=== PATIENT | female | born 1975 | race Two or more races ===

== ENCOUNTER 2019-09-26 12:37 | Outpatient (CLI) | payer OTHER ==
[~2019-09-26 12:37] MED LIST: CIPRO500 MG; URETRON D/S TAB1 TAB
== END 2019-09-26 12:41 | disposition home or self-care (01) ==
LOC: RAD 12:37
PROVIDERS: ATTEND Orthopaedic Surgery
DX: M25.562 Pain in left knee (principal); M25.512 Pain in left shoulder

== ENCOUNTER 2019-10-23 09:01 | Outpatient (CLI) | payer OTHER | END 2019-10-23 09:03 | disposition home or self-care (01) | LOC: SONOGRAMA 09:01 | PROVIDERS: ATTEND Orthopaedic Surgery | DX: M25.512 Pain in left shoulder (principal) ==

== ENCOUNTER → 2019-11-27 | Outpatient (CLI) | payer OTHER | END | disposition home or self-care (01) | LOC: MAMO-SONO 08:45 | PROVIDERS: ATTEND Obstetrics & Gynecology Gynecology | DX: Z12.31 Encounter for screening mammogram for malignant neoplasm of breast (principal); N64.4 Mastodynia; N64.59 Other signs and symptoms in breast; N63.10 Unspecified lump in the right breast, unspecified quadrant; N63.20 Unspecified lump in the left breast, unspecified quadrant; R10.2 Pelvic and perineal pain ==

== ENCOUNTER 2020-02-10 13:48 | Outpatient (CLI) | payer OTHER | END 2020-02-10 13:53 | disposition home or self-care (01) | LOC: NUCLEAR 13:48 | PROVIDERS: ATTEND Orthopaedic Surgery | DX: M81.0 Age-related osteoporosis without current pathological fracture (principal) ==

== ENCOUNTER → 2020-02-10 14:06 | Outpatient (CLI) | payer OTHER | END | disposition home or self-care (01) | LOC: LAB 14:00 | PROVIDERS: ATTEND Obstetrics & Gynecology Gynecology | DX: N95.1 Menopausal and female climacteric states (principal); N97.0 Female infertility associated with anovulation; N91.0 Primary amenorrhea ==

== ENCOUNTER 2020-10-14 10:10 | Outpatient (CLI) | payer OTHER | END 2020-10-14 10:22 | disposition home or self-care (01) | LOC: SONOGRAMA 10:10 | DX: N16 Renal tubulo-interstitial disorders in diseases classified elsewhere (principal) ==

== ENCOUNTER 2021-01-12 09:46 | Outpatient (CLI) | payer OTHER | END 2021-01-12 09:55 | disposition home or self-care (01) | LOC: TOM 09:46 | PROVIDERS: ATTEND Internal Medicine Gastroenterology | DX: Q61.01 Congenital single renal cyst (principal); R10.13 Epigastric pain ==

== ENCOUNTER 2021-07-08 15:04 | Outpatient (CLI) | payer OTHER | END 2021-07-08 15:05 | disposition home or self-care (01) | LOC: RAD 15:04 | PROVIDERS: ATTEND Orthopaedic Surgery | DX: M25.512 Pain in left shoulder (principal) ==

== ENCOUNTER 2021-07-20 11:13 | Outpatient (CLI) | payer OTHER | END 2021-07-20 11:16 | disposition home or self-care (01) | LOC: MAMO-SONO 11:13 | DX: N60.11 Diffuse cystic mastopathy of right breast (principal); N60.12 Diffuse cystic mastopathy of left breast ==

== ENCOUNTER 2021-08-15 22:14 | Emergency (ER) | payer OTHER ==
[~2021-08-15] VITALS: Ht 157.5 cm; Wt 64.4 kg
[2021-08-15] MEDS ORDERED: ACID REDUCER20 M1 PO (22:33)
[2021-08-16] MEDS ORDERED: NEURONTIN300 MG PO (00:31)
[2021-08-16] MEDS ORDERED: KETO10TA2 PO (00:31)
[2021-08-16] MEDS ORDERED: FAMCICLOVIR500 MG PO (00:31)
== END 2021-08-16 00:46 | disposition home or self-care (01) ==
LOC: ER 22:14
DX: B02.9 Zoster without complications (principal)

== ENCOUNTER 2021-09-09 11:11 | Emergency (ER) | payer OTHER ==
[~2021-09-09] VITALS: Ht 157.5 cm; Wt 61.2 kg
[~2021-09-09 11:11] MED LIST changes: +ACID REDUCER20 M1 PO; +FAMCICLOVIR500 MG PO; +KETO10TA2 PO; +NEURONTIN300 MG PO
== END 2021-09-09 16:11 | disposition home or self-care (01) ==
LOC: ER 11:11
DX: E86.0 Dehydration (principal); Z20.822 Contact with and (suspected) exposure to COVID-19; B02.9 Zoster without complications

== ENCOUNTER 2022-04-05 13:57 | Outpatient (CLI) | payer OTHER | END 2022-04-05 14:03 | disposition home or self-care (01) | LOC: NUCLEAR 13:57 | DX: M85.9 Disorder of bone density and structure, unspecified (principal) ==

== ENCOUNTER 2022-07-22 15:24 | Outpatient (CLI) | payer OTHER | END 2022-07-22 15:35 | disposition home or self-care (01) | LOC: RAD 15:24 | DX: M25.511 Pain in right shoulder (principal) ==

== ENCOUNTER → 2022-09-20 09:09 | Outpatient (CLI) | payer OTHER | END | disposition home or self-care (01) | LOC: LAB 09:09 | DX: N97.0 Female infertility associated with anovulation (principal); R10.2 Pelvic and perineal pain; N30.00 Acute cystitis without hematuria; N30.01 Acute cystitis with hematuria; E11.9 Type 2 diabetes mellitus without complications; E78.2 Mixed hyperlipidemia; N95.1 Menopausal and female climacteric states; K62.5 Hemorrhage of anus and rectum; Z12.11 Encounter for screening for malignant neoplasm of colon; C19 Malignant neoplasm of rectosigmoid junction ==

== ENCOUNTER 2022-09-20 12:29 | Outpatient (CLI) | payer OTHER | END 2022-09-20 12:40 | disposition home or self-care (01) | LOC: MAMO-SONO 12:29 | PROVIDERS: ATTEND Obstetrics & Gynecology Gynecology | DX: N63.0 Unspecified lump in unspecified breast (principal); N64.4 Mastodynia; N64.59 Other signs and symptoms in breast; Z12.31 Encounter for screening mammogram for malignant neoplasm of breast; R10.2 Pelvic and perineal pain ==

== ENCOUNTER 2022-09-22 12:34 | Outpatient (CLI) | payer OTHER | END 2022-09-22 14:36 | disposition home or self-care (01) | LOC: LAB 12:34 | PROVIDERS: ATTEND Obstetrics & Gynecology Gynecology | DX: C19 Malignant neoplasm of rectosigmoid junction (principal); R10.2 Pelvic and perineal pain; N30.00 Acute cystitis without hematuria; N30.01 Acute cystitis with hematuria; E11.9 Type 2 diabetes mellitus without complications; E78.2 Mixed hyperlipidemia; N95.1 Menopausal and female climacteric states; K62.5 Hemorrhage of anus and rectum; Z12.11 Encounter for screening for malignant neoplasm of colon ==